=== PATIENT | male | born 1965 | race Caucasian/White ===

== ENCOUNTER 2024-10-02 20:54 | Emergency (ER) | payer BC, SELFPAY ==
[2024-10-02] VITALS (17 sets, daily range): BP systolic 125–152; BP diastolic 57–93; PULSE 67–81; RESP 16–23; TEMP 36.3; O2SAT 92–98
--- NOTE | ~2024-10-02 | XR_ITS ---
XR chest 1V portable Ordering provider: Theo Rucker PA-C History: 59 years Male with . cp . Comparison: September 07, 2011 FINDINGS: MEDIASTINUM: The cardiac silhouette is slightly enlarged. LUNGS: No infiltrates, effusions or pneumothorax. OTHER: No free air under the diaphragm. IMPRESSION: No acute cardiopulmonary pathology. Reviewed, dictated and finalized at location A.
--- NOTE | 2024-10-02 21:00 | ECG_ITS ---
Test Date: 2024-10-02 21:03:52 Measurements Intervals [place] Rate: 66 P: 47 MN: 149 QRS: 10 QRSD: 110 T: 30 QT: 404 QTc: 426 Interpretive Statements SINUS RHYTHM BORDERLINE ST ABNORMALITY- HIGH LATERAL LEADS BASELINE ARTIFACT- I, II, III, AVR, AVL, AVF, V3-V6 BORDERLINE ECG No previous ECG available for comparison Electronically Signed On 10-03-2024 07:17:35 CDT by Donaldo Richter D.O.
--- NOTE | 2024-10-02 21:11 | ED_ITS ---
HPI - Chest Pain General Chief Complaint: Chest Pain Stated Complaint: chest pain Time Seen by Provider: 10/02/24 21:00 Source: patient Mode of arrival: ambulatory Limitations: no limitations History of Present Illness HPI narrative: This is a 59-year-old male with no cardiac history who presents to the ED for chief complaint of left sided chest pain intermittent over the past 24 hours but came on sharply tonight. Patient states that he was sitting down and felt the pain on the left side of the chest and describes this as a dull ache. States that the pain stays on the left side and does not radiate. He does state that he took 4 baby aspirin prior to arrival. Endorses associated lightheadedness but no syncope. Denies nausea, vomiting, numbness, weakness. During the interview he states that his pain is very minimal at this time. Reports he was about 8/10 her earlier when it started tonight. Does endorse abdominal distension but no abdominal pain. States the distension is chronic, however he does feel bloated. Denies cardiac history but does have remote smoking history. Related Data Allergies Allergy/AdvReac Type Severity Reaction Status Date / Time Penicillins Allergy Unknown Verified 10/02/24 20:55 Review of Systems 2 Review of Systems: All systems as dictated in HPI Exam 2 Narrative: GENERAL: Well-appearing, well-nourished, and in no acute distress. HEAD: Normocephalic, atraumatic. EYES: PERRLA and EOMI. ENT: Nares clear, no rhinorrhea or epistaxis. Mucous membranes moist. Oropharynx without tonsillar hypertrophy exudate or other lesions. NECK: Supple. No adenopathy or masses. CHEST: No respiratory distress. Clear to auscultation. No wheezes rales or rhonchi HEART: Regular rate and rhythm. No murmur heard. Normal peripheral pulses. ABDOMEN: Moderate abdominal distension. Soft, nontender, normal active bowel sounds. MSK: Normal range of motion. No edema. SKIN: Warm, dry, no rash. NEURO: Alert and oriented x4. No focal deficits. PSYCH: Normal mood and affect. Course Course Emergency Course: Re-evaluation 004: Patient is resting comfortably in the bed, sleeping on my arrival. He has been pain-free for almost the entirety of his visit today. Feels ready to go home. Vital Signs Vital signs: Vital Signs Temperature 97.4 F L 10/02/24 20:55 Pulse Rate 73 10/02/24 20:55 Respiratory Rate 20 10/02/24 20:55 Blood Pressure 152/80 H 10/02/24 20:55 Pulse Oximetry 96 10/02/24 20:55 Oxygen Delivery Room Air 10/02/24 20:55 Temperature 97.9 F 10/03/24 00:58 Pulse Rate 68 10/03/24 00:58 Respiratory Rate 16 10/03/24 00:58 Blood Pressure 109/76 10/03/24 00:58 Pulse Oximetry 98 10/03/24 00:58 Oxygen Delivery Room Air 10/02/24 21:15 MDM - Chest Pain MDM Narrative Medical decision making narrative: This is a 59-year-old male who presents to the ED for chest pain intermittent over the past 24 hours. Vitals show mildly elevated blood pressure 152/80 and otherwise well. EKG shows sinus rhythm with no acute ischemic findings. Initial troponin and 3 hour troponin negative and undetectable. Mildly elevated white count of 12.7. D-dimer is negative. Heart score is 3 Chest x-ray shows no acute findings. Shared decision making regarding discharge verses admission for chest pain. Patient is feeling completely asymptomatic and has been pain free for almost the entirety of his visit. He feels comfortable with going home at this point. We did discuss that his pain does not seem to be representing ACS today. He advises that he has close follow-up with his PCP and will get in with appointment as soon as possible. He was given strict return precautions for chest pain. Patient will be discharged in stable condition. . Patient is understanding and agreeable with plan for discharge with PCP follow-up. Lab Data 10/02/24 21:11 10/02/24 21:11 Labs: Lab Results 10/02/24 10/02/24 Range/Units 21:11 23:37 WBC 12.7 H (4.5-10.0) K/mm3 RBC 5.18 (4.6-6.20) M/mm3 Hgb 15.7 (14.0-18.0) g/dL Hct 45.1 (42.0-52.0) % MCV 87.1 (80-100) fl MCH 30.3 (26-34) pg MCHC 34.8 (32-36) g/dl RDW 12.5 (11.5-14.5) % Plt Count 304 (150-375) k/mm3 MPV 9.6 (7.4-10.4) fl Immature Gran % (Auto) 0.5 (0-0.5) % Neut % (Auto) 56.6 (45.5-73.1) % Lymph % (Auto) 34.9 (18.3-44.2) % [place] % (Auto) 6.7 (2.6-8.5) % Eos % (Auto) 0.9 (0-4.4) % Baso % (Auto) 0.4 (0.2-1.2) % Lymph # (Auto) 4.42 H (0.9-3.2) K/mm3 [place] # (Auto) 0.9 H (0.1-0.6) K/mm3 Eos # (Auto) 0.1 (0-0.3) K/mm3 Baso # (Auto) 0.1 (0.0-0.1) K/mm3 Abs Immat Gran (auto) 0.06 H (0.00-0.031) K/mm3 Absolute Neuts (auto) 7.2 H (1.3-6.7) K/mm3 Absolute Nucleated RBC 0.000 (0.0-0.012) K/mm3 Nucleated RBC % 0.0 (0.0-0.2) % PT 12.8 (11.1-14.7) Seconds INR 0.9 APTT 25.6 (22.3-36.8) Seconds D-Dimer 0.48 (<0.48) ug/mL Sodium 141 (137-145) mmol/L Potassium 3.6 (3.4-5.0) mmol/L Chloride 104 (98-107) mmol/L Carbon Dioxide 20 L (22-30) mmol/L Anion Gap 17 H (4-12) mmol/L BUN 13 (9-20) mg/dL Creatinine 0.73 (0.7-1.3) mg/dL Estim Creat Clear Calc 108 ml/min Estimated GFR > 60 (59 - ) Glucose 121 H (65-110) mg/dL Calcium 9.4 (8.4-10.2) mg/dL Total Bilirubin 0.4 (0.2-1.3) mg/dL AST 25 (17-59) U/L ALT 27 (6-50) U/L Alkaline Phosphatase 90 (38-126) U/L Troponin I < 0.012 < 0.012 (0.000-0.034) ng/mL NT-Pro-B Natriuret Pep 57 (19.9-100) pg/mL Total Protein 7.0 (6.3-8.2) g/dL Albumin 4.6 (3.5-5.1) g/dL Discharge Plan Discharge Clinical Impression: Chest pain Patient Disposition: Home Condition: Stable Instructions: Antibiotic Form Additional Instructions: Exam and imaging today are reassuring. If you have any new or worsening symptoms such as chest pain, shortness of breath or feeling lightheaded please return immediately to the ED. otherwise follow-up very closely with your PCP on this issue. Patient Language: [place] Follow-up/Referrals: PHYSICIAN NOT ON STAFF,NONSTAFF [Non-Staff] - Time of Disposition: 00:43 Quality HEART score for chest pain patients History: slightly suspicious ECG: non specific repolarization disturbance/LBTB/PM Age: > 45 and < 65 years Risk factors: 1 or 2 risk factors Troponin: < or = to 1x normal limit Heart score: 3
--- NOTE | 2024-10-02 21:15 | ECG_ITS ---
Test Date: 2024-10-02 21:23:11 Measurements Intervals [place] Rate: 61 P: 37 NV: 150 QRS: 3 QRSD: 101 T: 31 QT: 397 QTc: 402 Interpretive Statements SINUS RHYTHM INCOMPLETE RIGHT BUNDLE BRANCH BLOCK VOLTAGE CRITERIA FOR LVH BASELINE ARTIFACT- I, II, AVR, V1 BORDERLINE ECG Compared to ECG 10/02/2024 21:03:52 NO SIGNIFICANT CHANGE Electronically Signed On 10-03-2024 07:34:19 CDT by Donaldo Richter D.O.
[2024-10-02 21:16] LABS: Basophils Absolute Auto 0.1 K/mm3 (0.0-0.1); Basophils Percent Auto 0.4 % (0.2-1.2); Eosinophils Absolute Auto 0.1 K/mm3 (0-0.3); Eosinophils Percent Auto 0.9 % (0-4.4); Hematocrit 45.1 % (42.0-52.0); Hemoglobin 15.7 g/dL (14.0-18.0); Immature Granulocyte Absolute 0.06 K/mm3 (0.00-0.031); Immature Granulocyte Percent A 0.5 % (0-0.5); Lymphocytes Absolute Auto 4.42 K/mm3 (0.9-3.2); Lymphocytes Percent Auto 34.9 % (18.3-44.2); Mean Corpuscular HGB Conc 34.8 g/dl (32-36); Mean Corpuscular Hemoglobin 30.3 pg (26-34); Mean Corpuscular Volume 87.1 fl (80-100); Mean Platelet Volume 9.6 fl (7.4-10.4); Monocytes Absolute Auto 0.9 K/mm3 (0.1-0.6); Monocytes Percent Auto 6.7 % (2.6-8.5); Neutrophils Absolute Auto 7.2 K/mm3 (1.3-6.7); Neutrophils Percent Auto 56.6 % (45.5-73.1); Platelet Count Result 304 k/mm3 (150-375); Red Blood Count 5.18 M/mm3 (4.6-6.20); Red Cell Distribution Width 12.5 % (11.5-14.5); White Blood Count 12.7 K/mm3 (4.5-10.0)
[2024-10-02 21:28] LABS: Alanine Aminotransferase 27 U/L (6-50); Albumin Level 4.6 g/dL (3.5-5.1); Alkaline Phosphatase 90 U/L (38-126); Anion Gap 17 mmol/L (4-12); Aspartate Amino Transferase 25 U/L (17-59); Bilirubin,Total 0.4 mg/dL (0.2-1.3); Blood Urea Nitrogen 13 mg/dL (9-20); Calcium 9.4 mg/dL (8.4-10.2); Carbon Dioxide 20 mmol/L (22-30); Chloride 104 mmol/L (98-107); Estimated CRCL calculation 108 ml/min; Estimated Glomerular Filt Rate > 60; Glucose 121 mg/dL (65-110); Potassium 3.6 mmol/L (3.4-5.0); Sodium 141 mmol/L (137-145)
[2024-10-02 21:39] LABS: NT Pro B Type Natriuretic Pept 57 pg/mL (19.9-100); Troponin I < 0.012 ng/mL (0.000-0.034)
[2024-10-02 22:19] LABS: INR 0.9; Partial Thromboplastin Time 25.6 Seconds (22.3-36.8); Prothrombin Time 12.8 Seconds (11.1-14.7)
[2024-10-02 22:22] LABS: D Dimer 0.48 ug/mL (<0.48)
--- NOTE | 2024-10-02 23:32 | ECG_ITS ---
Test Date: 2024-10-02 23:32:57 Measurements Intervals [place] Rate: 66 P: 43 [place]: 151 QRS: 6 QRSD: 103 T: 42 QT: 384 QTc: 404 Interpretive Statements SINUS RHYTHM INCOMPLETE RIGHT BUNDLE BRANCH BLOCK BORDERLINE ECG Compared to ECG 10/02/2024 21:23:11 No significant changes Electronically Signed On 10-03-2024 07:33:30 CDT by Donaldo Richter D.O.
--- NOTE | 2024-10-02 23:40 | PC.NURSE ---
3hr ekg/troponin collected at this time.
[2024-10-03] VITALS (8 sets, daily range): BP systolic 109–130; BP diastolic 56–76; PULSE 62–71; RESP 13–17; TEMP 36.6; O2SAT 96–100
[2024-10-03 00:31] LABS: Troponin I < 0.012 ng/mL (0.000-0.034)
== END 2024-10-03 00:59 | disposition home or self-care (01) ==
PROVIDERS: Emergency Provider Physician Assistant
DX: R07.9 Chest pain, unspecified (principal); I45.10 Unspecified right bundle-branch block; R94.31 Abnormal electrocardiogram [ECG] [EKG]
CPT/HCPCS: 36415; 71045; 80053; 83880; 84484; 85025; 85380; 85610; 85730; 93005; 99284